=== PATIENT | male | born 1970 | race Caucasian/White ===

== ENCOUNTER 2018-03-09 14:17 | Emergency (ER) | payer SELFPAY ==
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
[2018-03-09 15:36] LABS: CHLORIDE,CL 104 mmol/L (98-107); SODIUM,NA 134 mmol/L (136-148)
== END 2018-03-09 14:34 ==
LOC: MW.ED 14:17
DX: R44.0 Auditory hallucinations (principal)
CPT/HCPCS: 36415; 80053; 80305; 81001; 84443; 85025; 99285; G0480; 99283